=== PATIENT | female | born 1940 | race Caucasian/White ===

== ENCOUNTER → 2017-03-17 | Day surgery (SDC) | payer OTHER ==
--- NOTE | 2017-03-14 08:50 | MH ---
cc: [facility] [place], MILANA MOTT DATE OF ADMISSION: 03/17/2017 ADMISSION DIAGNOSIS Cataract, left eye. HISTORY OF PRESENT ILLNESS This 76-year-old white female is coming through [facility] for the purpose of a lens extraction of the left eye with intraocular lens implant under local anesthesia. She has noticed decreasing visual acuity interfering with her daily activities and elected to have the above procedure. Her best-corrected visual acuity is 20/20 -3 in the right eye and 20/40 -1/+1 in the left eye in room light. Glare testing decreases this to 20/70 in the left eye and 20/30 in the right. She therefore has elected to have a lens extraction with intraocular lens implant on the left eye at this time. PAST MEDICAL HISTORY The patient has a history of sinus problems and migraines. PAST SURGICAL HISTORY She has no past surgical history. MEDICATIONS Daily medications include: 1. Vitamin-D 50,000 units. 2. Activella. 3. Zomig. 4. Kids liquid multivitamins. 5. Excedrin Migraine. ALLERGIES SHE IS ALLERGIC TO CODEINE, SENSITIVE TO CIPRO, AND ALLERGIC TO ERYTHROMYCIN. SOCIAL HISTORY She does not smoke, does drink alcohol. FAMILY HISTORY Positive for possible cataracts in her father. REVIEW OF SYSTEMS HEAD: The patient does get sinus/migraine type headaches. Patient denies dizziness or recent head injury. EARS: She occasionally has discharge from her ears and some ringing which she feels may be allergy related. Patient denies hearing loss or ear pain. NOSE: Patient denies nasal discharge, obstruction or frequent colds. MOUTH AND THROAT: Patient denies soreness of the mouth or tongue, bleeding gums, trouble swallowing, changes in voice or sore throat. NECK: She has some limitation of neck movement. She says she pulled a tendon a year or two ago. CARDIOPULMONARY SYSTEM: Patient denies shortness of breath, orthopnea, chronic cough, sputum production, hemoptysis, chest pain, wheezing, palpitations or light-headedness. GI SYSTEM: Patient has hemorrhoids. Denies poor appetite, nausea, vomiting, abdominal pain, ulcers or change in bowel habits. SYSTEM: Patient has urinary frequency due to a "small bladder." denies dysuria or change in urine color. NERVOUS SYSTEM: Patient denies convulsions, vertigo, stroke, numbness or weakness. PHYSICAL EXAMINATION VITAL SIGNS: Blood pressure 138/86, pulse 84, respirations 16. HEAD: Normocephalic, atraumatic. NOSE: Without rhinorrhea. THROAT: Clear. NECK: Supple. CHEST: Clear. HEART: Regular rhythm. ABDOMEN: Without tenderness. EXTREMITIES: Without edema. NEUROLOGIC: Within normal limits. MENTAL STATUS: Within normal limits. EYE EXAM: The patient's best-corrected visual acuity is 20/20 -3 in the right eye and 20/40 -1/+1 in the left eye in room light. This decreases on glare testing to 20/30 in the right eye and 20/70 in the left. Visual downing are full to confrontation testing. Extraocular muscle exam reveals full versions with a right hyperphoria at distance and near. Pupils are 3.5 mm, equal, round, and reactive to light without afferent defect. 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 There are nuclear sclerotic posterior cortical and posterior subcapsular cataract changes bilaterally. Intraocular pressure is 22 in each eye by applanation tonometry. Dilated fundus exam reveals sharp disks with cup-to-disk ratio of 0.2 in the right eye and 0.3 in the left. 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 A posterior vitreous detachment is present bilaterally. IMPRESSION 1. Bilateral cataracts. 2. Posterior vitreous detachment both eyes. 3. 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 4. Dry eyes. PLAN Lens extraction of the left eye with intraocular lens implant under local anesthesia through [facility]. The patient has been cleared medically. She has been counseled as to the risks, benefits and alternatives and elected to proceed. I feel that cataract surgery will improve the quality of life and activities of daily living in this patient. MD KENNY Haider/TAMIA /7:09 AM /8:44 AM
[~2017-03-17] VITALS: Ht 157.5 cm; Wt 45.5 kg
[~2017-03-17] MED LIST: ACETYLCHOLINE CHL OPHT SOLN 1:100 2 ML VIAL ONE; CHLORHEXIDINE GLUCONATE 2 % 1 PACK (2 CLOTHS) TOPICAL PRN; EPINEPHrine HCL PF/SF (1:1000) 1 MG/ML AMP I-OCULAR ONE; EXCETAB31 PO; HYALURONIDASE/LIDOCAINE/BUPIVACAINE 5 ML SYR SCH; LACTATED RINGER'S 1000 ML IV PRN; METOPROLOL TARTRATE 25 MG TAB PO PRN; MIDAZOLAM HCL 2 MG/2 ML VIAL ONE; PILOCARPINE HCL 2% OPHT SOLN 15 ML BTL ONE; POVIDONE IODINE 5% (ANTISEPSIS KIT) 4 APPLICATIONS EACH NARE PRN; PROPARACAINE HCL 0.5% OPHT SOLN 15 ML BTL LEFT EYE ONE; PROPOFOL 200 MG/20 ML AMP ONE; SODIUM CHLORID 0.9% 500 ML IV PRN; TOBRAMYCIN/DEXAMETHASONE OPTH OINT 3.5 GM TUBE ONE; VISCOAT OPHT IRRIG SOLN 0.75 ML SYRINGE ONE; ZOLM2.5T PO
[2017-03-17 07:30] VITALS: PULSE 77
[2017-03-17] MEDS: DICLOFENAC SOD 0.1% OPHT SOLN 2.5 ML BTL LEFT EYE SCH ×4 (07:39→07:48)
[2017-03-17] MEDS: PHENYLEPHRINE HCL 2.5% OPTH SOLN 2 ML BTL LEFT EYE SCH ×4 (07:39→07:48)
[2017-03-17] MEDS: CYCLOPENTOLATE HCL 1% OPHT SOLN 2 ML BTL LEFT EYE SCH ×4 (07:39→07:48)
[2017-03-17] MEDS: GATIFLOXACIN 0.5% OPHT SOLN 2.5 ML BTL LEFT EYE SCH ×4 (07:39→07:48)
[2017-03-17] MEDS: TROPICAMIDE 1% OPHT SOLN 15 ML BTL LEFT EYE SCH ×4 (07:39→07:48)
[2017-03-17 08:01] VITALS: PULSE 72
[2017-03-17 10:24] VITALS: TEMP 98
[2017-03-17 10:47] VITALS: BP 152/82; PULSE 76; RESP 14; O2SAT 100
--- NOTE | 2017-03-17 10:51 | MP ---
cc: MILANA GIPSON DATE OF SURGERY: 03/17/2017 PREOPERATIVE DIAGNOSIS Cataract, left eye. POSTOPERATIVE DIAGNOSIS Cataract, left eye. OPERATION Extracapsular cataract extraction with posterior chamber intraocular lens implant by phacoemulsification, left eye. SURGEON Milana Gipson M.D. ANESTHESIA Local. COMPLICATIONS None. INDICATIONS See history and physical previously dictated. OPERATIVE PROCEDURE The patient had adequate retrobulbar and eyelid blocks administered in the holding area and was brought to the operating room. The left eye was prepped and draped in the usual sterile ophthalmic manner. A lid speculum was inserted in the left eye. A 4-0 silk bridle suture was placed through the conjunctiva near the superior rectus muscle and it was tacked to the drape. A fornix-based conjunctival flap was prepared spanning approximately 5 mm in width. Hemostasis was obtained with wet-field cautery. A 3.5 mm groove was made 1 mm from the limbus and dissected up to the limbus in the form of a scleral pocket incision. A stab incision was then made at the 2 o'clock position. Viscoelastic was injected into the anterior chamber. The anterior chamber was entered with a 2.75 mm keratome through the scleral pocket incision. A 360 degree continuous curvilinear capsulorrhexis was then performed. Hydrodissection was utilized to divide the nucleus into inner and outer components and to separate the cortex from the capsule. Phacoemulsification was then utilized to remove the nucleus. The outer nuclear layer was removed with irrigation and aspiration and short bursts of ultrasound as necessary. The cortex was removed with the irrigation-aspiration handpiece. The posterior capsule was polished with the capsule polisher. Viscoelastic was injected into the capsular bag. The intraocular lens was inspected and found to be in good condition. The lens utilized was an Francis model SA60AT with a power of +19 diopters. The lens was inserted into the capsular bag. The viscoelastic in the anterior chamber was then removed with the irrigation-aspiration handpiece. Viscoelastic was also removed from beneath the intraocular lens. The anterior chamber was filled with Miochol-E through the stab incision and pressurized. The wound was checked for leaks at this pressure and normalized pressure, and there were none. The 4-0 bridle suture was removed. The conjunctival flap was brought down over the wound and secured with cautery. Pilocarpine 2% eye drops were instilled topically. The lid speculum was removed. TobraDex ophthalmic ointment was applied. The eye was double patched and shielded. The patient tolerated the procedure well and left the Operating Room in satisfactory condition. MD KENNY Haider/TAMIA /10:27 AM /10:46 AM
== END | disposition home or self-care (01) ==
LOC: PHSDC 06:43
PROVIDERS: ATTEND Ophthalmology
DX: H25.812 Combined forms of age-related cataract, left eye (principal); H43.813 Vitreous degeneration, bilateral; H04.123 Dry eye syndrome of bilateral lacrimal glands; H35.30 Unspecified macular degeneration
CPT/HCPCS: 00142; 66984; J0171; J2250; J7040; V2632